=== PATIENT | male | born 1930 | race Caucasian/White ===

== ENCOUNTER 2018-01-09 18:18 | Inpatient (IN) ==
--- NOTE | 2018-01-09 20:47 | ED ---
HPI General Chief complaint: Extremity Injury, Upper Stated complaint: Fall/Injury to Right Shoulder Time Seen by Provider: 01/09/18 20:21 Source: patient, family and old records reviewed Mode of arrival: ambulatory Limitations: no limitations History of Present Illness HPI narrative: 87-year-old male presents to the emergency department for right shoulder injury. Patient was seen earlier today at [facility]. He had an x-ray completed which shows complex comminuted right humerus fracture with significant displacement. Orthopedic surgeon on-call, Dr. Killian, was notified who recommended CT of the shoulder, admission, consult to Dr. Dumas to do surgery tomorrow. The patient had a bad experience at [place], therefore , he left AMA and went to [facility]. However, the surgeon that needs to do the surgery does not do surgeries at [facility] so he was told he had to come back to [place]. The patient states that he was walking on the road on uneven surface when he tripped and fell this morning, landing on his right shoulder, hitting his head. He does have an abrasion to the forehead. He does decline CT scan of the head. Patient reports 9/10 pain to the right shoulder, worse with movement. Moderate severity. No lacerations or abrasions. Of note, patient had abscess to the back incised and drained yesterday. He was prescribed antibiotics, but has not yet been able to fill them. No fevers or chills. Onset (ago): hour(s) Location: upper extremity Radiation: non-radiation Severity scale (1-10): 9 Quality: aching Pain Consistency: constant Relieving factors: immobilization Exacerbating factors: medication Associated symptoms: denies other symptoms Related Data Home Medications Medication Instructions Recorded Confirmed amoxicillin-pot clavulanate 1 tab PO BID 01/09/18 01/09/18 [Augmentin] Allergies Allergy/AdvReac Type Severity Reaction Status Date / Time No Known Allergies Allergy Verified 01/09/18 07:46 Review of Systems ROS Unobtainable All other systems reviewed negative except as stated in HPI PMFSH History History Provided By: Patient, Family Member and Medical Record Medical History Medical History High cholesterol (Acute) Hypertension (Acute) Hx of fracture of ankle (Acute) Social History Social History Substance History: No History of Abuse Second Hand Smoke Exposure: Yes Smoking Status: Never smoker How Often Do You Have a Drink Containing Alcohol: 2 to 3 times a week Recent Travel in [facility] within the Last 8 Weeks: No Recent Out of Country Travel within the Last 8 Weeks: No Exam Narrative Exam Narrative: GENERAL: Well-nourished, well-developed elderly male patient, ambulatory. Afebrile. SKIN: Focused skin assessment warm/dry. Patient has an abrasion to the forehead. HEAD: Normocephalic. EYES: No scleral icterus. No injection or drainage. NECK: Supple, trachea midline. No JVD or lymphadenopathy. CARDIOVASCULAR: Regular rate and rhythm without murmurs, gallops, or rubs. Bilateral radial pulses 2+ RESPIRATORY: Breath sounds equal bilaterally. No accessory muscle use. Lung sounds are clear to auscultation throughout. GASTROINTESTINAL: Abdomen soft, non-tender, nondistended. MUSCULOSKELETAL: No cyanosis, or edema. Patient has tenderness over left upper arm. BACK: Nontender without obvious deformity. No CVA tenderness. Course Initial Documented Vital Signs Temperature 97.5 F L 01/09/18 18:37 Pulse Rate 88 01/09/18 18:37 Respiratory Rate 18 01/09/18 18:37 Blood Pressure 105/61 01/09/18 18:37 Pulse Oximetry 98 01/09/18 18:37 Last Documented Vital Signs Temperature 97.5 F L 01/09/18 18:37 Pulse Rate 88 01/09/18 18:37 Respiratory Rate 18 01/09/18 18:37 Blood Pressure 105/61 01/09/18 18:37 Pulse Oximetry 98 01/09/18 18:37 Medical Decision Making [facility] Narrative Medical decision making narrative: 87 year old male presents to the emergency department for right shoulder injury. Patient was seen this morning at [facility] and left AMA, but came back after he was told that Dr. Dumas could not go to [facility]. Patient is agreeable to admission and surgery here. CT of the right shoulder is ordered and pending. IV access obtained. CBC, BMP, PTT, PT/ INR, chest x-ray, EKG orders are placed for preop. I notified Dr. Keller that the patient was back. He reports the patient should be n.p.o. after midnight for surgery tomorrow. Health hospitalist is paged for admission. Dr. Mishra accepted admission. Differential Diagnosis Differential Diagnosis: Fracture versus dislocation versus vascular injury Medical Records Medical records reviewed: Yes I reviewed the patient's medical records. Imaging Data Radiologist's impression: ITS Impressions Chest X-Ray 01/09/18 20:38 CONCLUSION: Mild cardiomegaly without failure. Lungs are clear. Discharge Plan Discharge Disposition Patient Disposition: 30 Still Patient Discharge Details Discharge Problem: Fracture, humerus, head Physicians Team ED Provider: Cuco Tesfaye ED Midlevel Provider: Lakesha Chauhan Primary Care Provider: Marianne Mejia Rxs /Orders / Referrals /Forms Prescriptions: No Action amoxicillin-pot clavulanate [Augmentin] 875-125 mg Tablet 1 tab PO BID RF: 0 Status ED Status: With Doctor
--- NOTE | 2018-01-09 20:57 | XR ---
EXAM DATE: 01/09/2018 8:54 PM EDT AGE/SEX: 87 years / Male INDICATIONS: Pre op ORIF shoulder. Congestion. CLINICAL DATA: This is the patient's initial encounter. Patient reports that signs and symptoms have been present for 1 day and indicates a pain score of 4/10. MEDICAL/SURGICAL HISTORY: None. None. COMPARISON: No prior exams available for comparison. FINDINGS: A single AP view of the chest demonstrates the lungs to be symmetrically aerated without evidence of mass, infiltrate or effusion. Mild cardiomegaly. Fracture surgical neck right humerus. CONCLUSION: Mild cardiomegaly without failure. Lungs are clear. Electronically signed by: Jude Brown MD 01/09/2018 8:56 PM EDT
[2018-01-09] MEDS ORDERED: Temazepam 15 MG Capsule PO PRN (21:03)
[2018-01-09] MEDS ORDERED: Bisacodyl 10 MG Supp RECTAL PRN (21:03)
[2018-01-09 22:14] LABS: Activated Partial Thrombo Time 23.6 sec (24.3-30.1); Prothrombin Time 10.4 sec (9.8-11.6)
[2018-01-09 22:18] LABS: Baso # (Auto) 0.1 th/mm3 (0.0-0.2); Baso % (Auto) 0.8 % (0.0-2.0); Eos % (Auto) 0.1 % (0.0-4.0); Hematocrit 39.2 % (39.0-51.0); Hemoglobin 13.2 gm/dL (13.0-17.0); Lymph % (Auto) 13.4 % (9.0-44.0); Mean Corpuscular HGB Conc 33.6 % (32.0-36.0); Mean Corpuscular Hemoglobin 31.7 pg (27.0-34.0); Mean Corpuscular Volume 94.4 fL (80.0-100.0); Mean Platelet Volume 8.8 fL (7.0-11.0); Mono % (Auto) 13.7 % (0.0-8.0); Neut # (Auto) 5.1 th/mm3 (1.8-7.7); Platelet Count 171 th/mm3 (150-450); Red Blood Count 4.15 mil/mm3 (4.50-5.90); Red Cell Distribution Width 12.8 % (11.6-17.2); White Blood Count 7.1 th/mm3 (4.0-11.0)
[2018-01-09 22:19] LABS: Calcium 9.3 mg/dL (8.5-10.1)
--- NOTE | 2018-01-09 23:35 | P.HPIM ---
History of Present Illness Primary Care Physician: Marianne Mejia MD History of Present Illness: 87-year-old male with a history of hypertension, hyperlipidemia not on medications who presents after a mechanical ground-level fall with injury to right upper arm. Patient was walking as per his usual routine this morning around 5 AM when he tripped on raised pavement and fell. He denies hitting head , however does have small abrasion on forehead. He says he otherwise feels fine. Denies any chest pain, shortness of breath, nausea, vomiting dysuria, hematuria. Denies any history of osteoporosis or prostate cancer. Patient does have an abscess on his right mid back which was incised and drained yesterday at [facility], and he was prescribed Bactrim which she has not taken. - Inpatient Certification If this patient has been admitted as an Inpatient: I certify that the inpatient services were ordered in accordance with Medicare regulations governing the order. This includes certification that hospital inpatient services are reasonable and necessary and in the case of services not specified as inpatient-only under 42 CFR 419.22(n), that they are appropriately provided as inpatient services in accordance to with the 2-midnight benchmark under 43 CFR 412.3(e) Estimated Total Length of Stay (Days): 2 Plans for Post Hospital Care: Home Review of Systems All other systems reviewed negative except as stated in HPI [facility] - History History Provided By: Patient, Family Member, Medical Record - Medical History Medical History: Medical History (Last Updated 01/09/18 @ 23:30 by Compa Mishra MD) Status post ORIF of fracture of ankle (Acute) High cholesterol (Acute) Hypertension (Acute) Hx of fracture of ankle (Acute) - Family History Family History: Family History (Last Updated 01/09/18 @ 23:24 by Compa Mishra MD) Father Alcoholic Mother Family history of hypertension - Tobacco History Second Hand Smoke Exposure: No Smoking Status: Never smoker - Alcohol History How Often Do You Have a Drink Containing Alcohol: 4 or more times a week - Substance Use History Substance History: No History of Abuse - Travel History Recent Travel in the [place] Within the Last 8 Weeks: No Recent Travel Out of the Country Within the Last 8 Weeks: No - Immunization History Tetanus Immunization: Unsure Hx Influenza Vaccine This Season: No Medications and Allergies Active Medications: Active Medications Al Hydroxide/Mg Hydroxide (Milk Of Magnidania Liq) 30 ml PO Q12H PRN PRN Reason: Mild Constipation Bisacodyl (Dulcolax Supp) 10 mg RECTAL DAILY PRN PRN Reason: SEVERE CONSITIPATION Lactulose (Lactulose Liq) 30 ml PO DAILY PRN PRN Reason: SEVERE CONSITIPATION Senna/Docusate Sodium (Charisse-Colace) 1 tab PO BID LAZARO Sennosides (Senokot) 17.2 mg PO Q12H PRN PRN Reason: Moderate Constipation Temazepam (Restoril) 15 mg PO HS PRN PRN Reason: INSOMNIA Allergies Allergy/AdvReac Type Severity Reaction Status Date / Time No Known Allergies Allergy Verified 01/09/18 07:46 Home Medications Medication Instructions Recorded Confirmed Type Calcium Plus MenaQ7 Senior 01/09/18 01/09/18 History Lactobacillus acidophilus 5,000 mmu cells PO DAILY 01/09/18 01/09/18 History amoxicillin-pot clavulanate 1 tab PO BID 01/09/18 01/09/18 History [Augmentin] cholecalciferol (vitamin D3) 1,000 unit PO DAILY 01/09/18 01/09/18 History [Vitamin D3] fish oil-dha-epa 01/09/18 01/09/18 History ginkgo biloba 120 mg PO DAILY 01/09/18 01/09/18 History methylsulfonylmethane [MSM] 1,000 mg PO BID 01/09/18 01/09/18 History Exam Vital signs: Vital Signs 01/09/18 18:37 01/09/18 21:24 01/09/18 22:02 Temperature 97.5 F L Pulse Rate 88 84 84 Respiratory Rate 18 18 Blood Pressure 105/61 117/67 117/67 Pulse Oximetry 98 99 99 Intake & Output 01/09/18 01/09/18 01/10/18 06:59 18:59 06:59 Weight 83.915 kg Narrative: GENERAL: Bed. Appears uncomfortable. Alert and oriented 3. SKIN: Warm and dry. Patient does have small abscess which is packed on the right mid back, minimal surrounding erythema. HEAD: Atraumatic. Normocephalic. EYES: Pupils equal and round. No scleral icterus. No injection or drainage. ENT: No nasal bleeding or discharge. Mucous membranes pink and moist. NECK: Trachea midline. No JVD. CARDIOVASCULAR: Regular rate and rhythm. RESPIRATORY: No accessory muscle use. Clear to auscultation. Breath sounds equal bilaterally. GASTROINTESTINAL: Abdomen soft, non-tender, nondistended. Hepatic and splenic margins not palpable. MUSCULOSKELETAL: Extremities without clubbing, cyanosis, or edema. No obvious deformities. NEUROLOGICAL: Awake and alert. No obvious cranial nerve deficits. Motor grossly within normal limits. Right arm in sling. Normal speech. PSYCHIATRIC: Appropriate mood and affect; insight and judgment normal. Results - Labs CBC & Chem 7: 01/09/18 21:40 01/09/18 21:40 Labs: Short CBC 01/09/18 Range/Units 21:40 WBC 7.1 (4.0-11.0) th/mm3 Hgb 13.2 (13.0-17.0) gm/dL Hct 39.2 (39.0-51.0) % Plt Count 171 (150-450) th/mm3 BMP 01/09/18 21:40 Sodium 141 Potassium 4.0 Chloride 106 Carbon Dioxide 26.0 BUN 21 H Creatinine 1.14 Calcium 9.3 - Imaging Impressions Chest X-Ray 01/09/18 20:38 CONCLUSION: Mild cardiomegaly without failure. Lungs are clear. Shoulder CT 01/09/18 20:38 CONCLUSION: 1. Severely comminuted fracture of the head and surgical neck as above. Three- dimensional reconstructions were performed in attempt to delineate fracture fragments. Caprini VTE Risk Assessment Caprini VTE Risk Assessment: Moderate/High Risk (score >= 2) Caprini Risk Assessment Model: Point Value = 1 Point Value = 2 Point Value = 3 Point Value = 5 Age 41-60 Minor surgery BMI > 25 kg/m2 Swollen legs Varicose veins or History of unexplained or recurrent spontaneous Oral contraceptives or hormone replacement Sepsis (< 1 month) Serious lung disease, including pneumonia (< 1 month) Abnormal pulmonary function Acute myocardial infarction Congestive heart failure (< 1 month) History of inflammatory bowel disease Medical patient at bed rest Age 61-74 Arthroscopic surgery Major open surgery (> 45 min) Laparoscopic surgery (> 45 min) Malignancy Confined to bed (> 72 hours) Immobilizing plaster cast Central venous access Age >= 75 History of VTE Family history of VTE Factor V Leiden Prothrombin [id number] Lupus anticoagulant Anticardiolipin antibodies Elevated serum homocysteine Heparin-induced thrombocytopenia Other congenital or acquired thrombophilia Stroke (< 1 month) Elective arthroplasty Hip, pelvis, or leg fracture Acute spinal cord injury (< 1 month) Prophylaxis Regimen: Total Risk Factor Score Risk Level Prophylaxis Regimen 0-1 Low Early ambulation 2 Moderate Order ONE of the following: *Sequential Compression Device (SCD) *Heparin 5000 units SQ BID 3-4 Higher Order ONE of the following medications: *Heparin 5000 units SQ TID *Enoxaparin/Lovenox 40 mg SQ daily (WT < 150 kg, CrCl > 30 mL/min) *Enoxaparin/Lovenox 30 mg SQ daily (WT < 150 kg, CrCl > 10-29 mL/min) *Enoxaparin/Lovenox 30 mg SQ BID (WT < 150 kg, CrCl > 30 mL/min) AND/OR *Sequential Compression Device (SCD) 5 or more Highest Order ONE of the following medications: *Heparin 5000 units SQ TID (Preferred with Epidurals) *Enoxaparin/Lovenox 40 mg SQ daily (WT < 150 kg, CrCl > 30 mL/min) *Enoxaparin/Lovenox 30 mg SQ daily (WT < 150 kg, CrCl > 10-29 mL/min) *Enoxaparin/Lovenox 30 mg SQ BID (WT < 150 kg, CrCl > 30 mL/min) AND *Sequential Compression Device (SCD) Assessment and Plan - Plan //Acute fracture of right humerus. = Immobilized in sling. Pain control. Orthopedics has been consulted. N.p.o. for possible surgery in the morning. //Right back abscess. = White blood cell count not elevated. We will need to request records from [facility] regarding incision and drainage. Hopefully cultures were performed. Will start on Keflex here. //Hypertension. Chronic. Not on medication = Blood pressure appears acceptable. Continue to monitor. Discussed Condition With: Patient, nurse, daughter at bedside
[2018-01-09] MEDS ORDERED: Naloxone Inj 0.4 MG/ML Vial IV.PUSH PRN (23:36)
[2018-01-09] MEDS ORDERED: Morphine Inj 4 MG/ML Vial IV.PUSH PRN (23:36)
[2018-01-10] MEDS ORDERED: Senna/Docusate Sodium 8.6/50 MG Tablet PO SCH (09:00)
--- NOTE | 2018-01-10 10:49 | ECG ---
Date Performed: 01/09/2018 Time Performed: 20:59:00 PTAGE: 87 years EKG: Sinus rhythm MARKED LEFT AXIS DEVIATION ABNORMAL ECG NO PREVIOUS TRACING DOCTOR: Dakota Everett Interpretating Date/Time 01/10/2018 10:47:09
--- NOTE | 2018-01-10 13:18 | P.PN ---
Subjective Interval history: Patient was evaluated earlier this morning. pain was controlled. Denied any nausea or vomiting, denied any chest pain or shortness of breath. eager to go home. He states that he will be going to [facility] urgent care for the packing of his back as he was told to remove it tomorrow. He doesn't want to f/u w his PCP as he was not happy with his care there for his back abscess. Pt states that he took 2.5 days of augmentin which his PCP had initially prescribed then when he went to [facility] on tuesday, the drained the abscess and was prescribed bactrim DS which he hasn't filled yet. Physical Exam Vital signs: Vital Signs 01/09/18 18:37 01/09/18 21:24 01/09/18 22:02 Temperature 97.5 F L Pulse Rate 88 84 84 Respiratory Rate 18 18 Blood Pressure 105/61 117/67 117/67 Pulse Oximetry 98 99 99 01/09/18 23:28 01/10/18 03:46 01/10/18 05:03 Temperature 98.4 F 98.4 F Pulse Rate 92 H 72 Respiratory Rate 17 17 20 Blood Pressure 132/61 118/56 L Pulse Oximetry 97 96 01/10/18 07:36 01/10/18 12:00 Temperature 98.0 F 97.9 F Pulse Rate 67 64 Respiratory Rate 18 16 Blood Pressure 148/66 H 127/58 L Pulse Oximetry 98 99 Intake & Output 01/09/18 01/10/18 01/10/18 18:59 06:59 18:59 Intake Total 300 / 300 Balance 300 / 300 Weight 83.915 kg 83.915 kg Intake: Oral 300 / 300 Other: Date of Last Bowel Movement 01/09/18 Weight On Admission 83.915 kg Narrative: GENERAL: sitting on side of bed. states he doesn't shake hands EYES: Extraocular motion intact. CARDIOVASCULAR: Regular rate and rhythm without murmurs. RESPIRATORY: Breath sounds equal bilaterally. No wheezing. GASTROINTESTINAL: Abdomen soft, non-tender, nondistended. MUSCULOSKELETAL: Right arm in a sling. Able to wiggle her fingers. Moves her lower extremities with no difficulty. Results - Labs CBC & Chem 7: 01/09/18 21:40 01/09/18 21:40 Laboratory Results - last 24 hr 07/08/2801/09/18 01/09/18 21:40 21:40 21:40 WBC 7.1 RBC 4.15 L Hgb 13.2 Hct 39.2 MCV 94.4 MCH 31.7 MCHC 33.6 RDW 12.8 Plt Count 171 MPV 8.8 Neut % (Auto) 72.0 H Lymph % (Auto) 13.4 [place] % (Auto) 13.7 H Eos % (Auto) 0.1 Baso % (Auto) 0.8 Neut # (Auto) 5.1 Lymph # (Auto) 1.0 [place] # (Auto) 1.0 H Eos # (Auto) 0.0 Baso # (Auto) 0.1 WBC Differential . Differential Comment Auto diff final PT 10.4 INR 1.0 APTT 23.6 L Sodium 141 Potassium 4.0 Chloride 106 Carbon Dioxide 26.0 Anion Gap 9 BUN 21 H Creatinine 1.14 Estimated GFR 61 L Random Glucose 165 H Calcium 9.3 - Imaging Impressions Chest X-Ray 01/09/18 20:38 CONCLUSION: Mild cardiomegaly without failure. Lungs are clear. Shoulder CT 01/09/18 20:38 CONCLUSION: 1. Severely comminuted fracture of the head and surgical neck as above. Three- dimensional reconstructions were performed in attempt to delineate fracture fragments. Assessment and Plan - Plan //Acute fracture of right humerus. = orthopedic sx evaluated the patient and pt opted for conservative management. will d/c pt home. pt must f/u w ortho post discharge. Pt will receive 3 days worth of po pain meds and for refills must contact orthopedic sx clinic. //Right back abscess. = White blood cell count not elevated. s/p incision and drainage , wound without much erythema and pt does have a script for bactrim. We attempted to obtain records but unfortunately these were not available. Pt will be following up w [facility] urgent care tomorrow to remove the packing and dressing change. I encouraged pt to f/u w PCP as well. //Hypertension. Chronic. Not on medication = Blood pressure appears acceptable. Continue to monitor. Discharge pt today f/u w PCP and ortho as an outpatient script in chart condition stable heart healthy diet activity: keep arm in sling until cleared by ortho
== END 2018-01-10 14:51 | disposition home or self-care (01) ==
LOC: NEPC 18:18 → NEDA 21:01 → NEPFCDU 22:36
PROVIDERS: ADMIT Hospitalist; ATTEND Hospitalist